=== PATIENT | male | born 1980 | race Two or more races ===

== ENCOUNTER 2023-09-10 09:19 | Emergency (ER) | payer OTHER ==
[~2023-09-10] VITALS: Ht 180.3 cm; Wt 83.9 kg
[~2023-09-10 09:19] MED LIST: FLONASE16 G1 NS
[2023-09-10] MEDS ORDERED: DEXAMETHASONE SODIUM PHOSPHATE 4 MG/ML VIAL IM ONE (11:15)
[2023-09-10] MEDS ORDERED: ACETAMINOPHEN 500 MG GEL..CAP PO ONE (11:15)
[2023-09-10 11:19] LABS: HEMATOCRIT 44.7 % (39.0-48.0); HEMOGLOBIN 15.8 g/dL (13-16.00); MEAN CELL VOLUME 87.6 fL (80.0-100.00); MEAN CORPUSCULAR HEMOGLOBIN 30.8 pg (27.00-32.0); MEAN CORPUSCULAR HGB CONC 35.2 g/dl (32.0-36.0); PLATELET COUNT 174 K/uL (150-450); RED BLOOD COUNT 5.11 M/uL (4.00-6.00); RED CELL DISTRIBUTION WIDTH 13.5 % (11.5-14.5)
[2023-09-10 11:44] LABS: CALCIUM 9.1 mg/dL (8.5-10.1); CREATININE SERUM 1.24 mg/dL (0.70-1.30); GFR 63.63; POTASSIUM 4.49 mEq/L (3.5-5.1)
[2023-09-10] MEDS ORDERED: OSEL75CA PO (12:33)
== END 2023-09-10 13:35 | disposition home or self-care (01) ==
LOC: ER 09:19
PROVIDERS: General Practice
DX: J10.1 Influenza due to other identified influenza virus with other respiratory manifestations (principal); Z20.822 Contact with and (suspected) exposure to COVID-19

== ENCOUNTER → 2024-08-31 | Emergency (ER) | payer OTHER ==
[~2024-08-31] VITALS: Ht 180.3 cm; Wt 81.6 kg
[~2024-08-31] MED LIST changes: +LOSARTAN-HCTZ1 EAC1 PO; +MICARDIS20 MG PO; +OSEL75CA PO; +hydrALAZINE HCL 20 MG VIAL IV ONE
[2024-08-31 19:22] LABS: HEMATOCRIT 48.2 % (39.0-48.0); HEMOGLOBIN 16.9 g/dL (13-16.00); MEAN CELL VOLUME 87.7 fL (80.0-100.00); MEAN CORPUSCULAR HEMOGLOBIN 30.7 pg (27.00-32.0); PLATELET COUNT 211 K/uL (150-450); RED BLOOD COUNT 5.49 M/uL (4.00-6.00)
[2024-08-31 19:44] LABS: ALBUMIN 4.1 gm/dL (3.4-5.0); BILIRUBIN TOTAL 0.69 mg/dL (0.3-1.2); CALCIUM 9.4 mg/dL (8.5-10.1); CREATININE SERUM 1.1 mg/dL (0.70-1.30); GFR 72.72; GLOBULINA 3.9 G/DL (2.4-3.5); POTASSIUM 3.82 mEq/L (3.5-5.1)
== END | disposition home or self-care (01) ==
LOC: ER 18:07
PROVIDERS: General Practice
DX: I10 Essential (primary) hypertension (principal)
CPT/HCPCS: 36415; 96365; 99282; J3490